=== PATIENT | female | born 1980 | race Caucasian/White ===

== ENCOUNTER → 2016-12-24 | Outpatient (CLI) | payer BC ==
[~2016-12-24] MED LIST: ADVIL200 M1 PO; MULTIVITAMINS1 EAC7 PO
== END ==
LOC: MRI 08:47
DX: R10.9 Unspecified abdominal pain (principal); R94.5 Abnormal results of liver function studies

== ENCOUNTER → 2018-02-02 | Outpatient (CLI) | payer BC | LOC: RAD 09:47 | DX: Z12.31 Encounter for screening mammogram for malignant neoplasm of breast (principal) ==

== ENCOUNTER → 2019-10-03 | Outpatient (CLI) | payer BC | LOC: CAT 08:43 | PROVIDERS: ATTEND Family Medicine | DX: Z13.6 Encounter for screening for cardiovascular disorders (principal); I25.10 Atherosclerotic heart disease of native coronary artery without angina pectoris; E78.00 Pure hypercholesterolemia, unspecified ==

== ENCOUNTER → 2020-02-18 | Outpatient (CLI) | payer OTHER | LOC: ULTRA 09:31 | PROVIDERS: ATTEND Family Medicine | DX: R10.13 Epigastric pain (principal); Z90.49 Acquired absence of other specified parts of digestive tract ==

== ENCOUNTER → 2020-02-21 | Outpatient (CLI) | payer OTHER | LOC: CAT 09:23 | PROVIDERS: ATTEND Family Medicine | DX: K55.1 Chronic vascular disorders of intestine (principal); M48.07 Spinal stenosis, lumbosacral region; Z90.49 Acquired absence of other specified parts of digestive tract ==